=== PATIENT | female | born 1970 | race Caucasian/White ===

== ENCOUNTER 2019-11-06 13:45 | IRF | payer OTHER, SELFPAY ==
--- NOTE | 2019-11-06 14:07 | ADMGEN ---
This patient, Usha De Souza Asa, was admitted to [facility] Room 222-02. Patient/family oriented to hospital policies and general routines including ID bracelet, bed and alarms, visiting hours, pain management, procedures, bathroom and other care routines, personal items, smoking policy, room service/diet, and visiting hours. Valuables list has been completed. Information on how to activate the Rapid Response Team has been discussed. Patient/Family are encouraged to report perceived risks to care and to ask questions if they do not understand what they are told or what they should do.
[2019-11-06 15:30] VITALS: BP 146/58; PULSE 106; RESP 20; TEMP 36.7; O2SAT 100; BMI 40.7
[2019-11-06 17:08] LABS: Glucose Point of Care 152 (65-105)
[2019-11-06] MEDS: INSULIN ASPART (*BKC) 100 UNITS/ML SUB-Q ×2 (18:59→21:17)
[2019-11-06] MEDS: busPIRone HCL 5 MG TABLET 15 MG PO (19:01)
[2019-11-06 19:02] VITALS: PULSE 106
[2019-11-06] MEDS: carvediloL 6.25 MG TABLET PO (19:02)
[2019-11-06] MEDS: GABAPENTIN 300 MG CAPSULE 600 MG PO (19:02)
[2019-11-06] MEDS: FUROSEMIDE 20 MG TABLET PO (19:02)
[2019-11-06] MEDS: VENLAFAXINE HCL 25 MG TABLET PO (19:03)
[2019-11-06] MEDS: VENLAFAXINE HCL 75 MG TABLET PO (19:03)
[2019-11-06] MEDS: MONTELUKAST SODIUM 10 MG TABLET PO (21:08)
[2019-11-06] MEDS: TRAZODONE HCL 50 MG TABLET 100 MG PO (21:08)
[2019-11-06] MEDS: ATORVASTATIN 20 MG TABLET PO (21:08)
[2019-11-06] MEDS: INSULIN GLARGINE (*BKC) 100 UNITS/ML 15 UNITS SUB-Q (21:20)
[2019-11-06 21:23] VITALS: BP 144/50; PULSE 104; RESP 16; TEMP 37.1; O2SAT 97
[2019-11-06 22:04] LABS: Glucose Point of Care 296 (65-105)
[2019-11-07 05:23] LABS: Blood Urea Nitrogen 6 mg/dL (7-17); Carbon Dioxide 31 mmol/L (22-30); Chloride 103 mmol/L (98-107); Estimated CRCL calculation 93 ml/min; Estimated Glomerular Filt Rate > 60; Glucose 147 mg/dL (65-105); Potassium 3.8 mmol/L (3.4-5.0); Sodium 139 mmol/L (137-145)
[2019-11-07 05:26] LABS: Basophils Percent Auto 0.3 % (0.2-1.2); Eosinophils Absolute Auto 0.2 K/mm3 (0-0.3); Eosinophils Percent Auto 3.7 % (0-4.4); Hematocrit 32.4 % (37.0-47.0); Hemoglobin 10.4 g/dL (12.0-15.0); Immature Granulocyte Absolute 0.02 K/mm3 (0.00-0.031); Immature Granulocyte Percent A 0.3 % (0-0.5); Lymphocytes Percent Auto 31.2 % (18.3-44.2); Mean Corpuscular HGB Conc 32.1 g/dl (32-36); Mean Corpuscular Hemoglobin 29.9 pg (26-34); Mean Corpuscular Volume 93.1 fl (80-100); Mean Platelet Volume 9.8 fl (7.4-10.4); Monocytes Absolute Auto 0.5 K/mm3 (0.1-0.6); Monocytes Percent Auto 7.6 % (2.6-8.5); Neutrophils Absolute Auto 3.7 K/mm3 (1.3-6.7); Neutrophils Percent Auto 56.9 % (45.5-73.1); Platelet Count Result 342 k/mm3 (150-375); Red Blood Count 3.48 M/mm3 (4.2-5.4); Red Cell Distribution Width 13.2 % (11.5-14.5); White Blood Count 6.4 K/mm3 (4.5-10.0)
[2019-11-07 06:00] VITALS: BP 145/66; PULSE 98; RESP 20; TEMP 36.2; O2SAT 98
[2019-11-07] MEDS: INSULIN ASPART (*BKC) 100 UNITS/ML SUB-Q ×2 (06:59→12:01)
[2019-11-07 07:05] LABS: Glucose Point of Care 158 (65-105)
[2019-11-07 09:44] VITALS: BMI 40.7
[2019-11-07] MEDS: INSULIN GLARGINE (*BKC) 100 UNITS/ML 10 UNITS SUB-Q (09:52)
[2019-11-07] MEDS: busPIRone HCL 5 MG TABLET 15 MG PO ×3 (09:53→18:13)
[2019-11-07] MEDS: ASPIRIN 81 MG CHEWABLE TABLET PO (09:53)
[2019-11-07 09:54] VITALS: PULSE 98
[2019-11-07] MEDS: FUROSEMIDE 20 MG TABLET PO ×2 (09:54→18:17)
[2019-11-07] MEDS: GABAPENTIN 300 MG CAPSULE 600 MG PO ×3 (09:54→18:17)
[2019-11-07] MEDS: carvediloL 6.25 MG TABLET PO ×2 (09:54→18:13)
[2019-11-07] MEDS: CITALOPRAM HYDROBROMIDE 20 MG TABLET PO (09:54)
[2019-11-07] MEDS: PANTOPRAZOLE 40 MG TABLET PO (09:55)
[2019-11-07] MEDS: VENLAFAXINE HCL 25 MG TABLET PO ×2 (09:55→18:16)
[2019-11-07] MEDS: lisinopriL 10 MG TABLET PO (09:55)
[2019-11-07] MEDS: VENLAFAXINE HCL 75 MG TABLET PO ×2 (09:55→18:16)
--- NOTE | 2019-11-07 10:00 | WPDREHABHP ---
H&P: HPI History of Present Illness Chief complaint: left ankle fracture Narrative: Usha De Souza Asa is a 49 year old female HISTORY OF PRESENT ILLNESS: The patient's primary rehab impairment category is 0 [id number] The etiologic diagnosis is tricompartmental Tibiotalar fracture dislocation / status post surgery I saw this patient [id number] on me the 2019 at 10:00 a.m. The patient is a 49-year-old right-handed white woman with a past medical history of autonomic neuropathy, coronary artery disease, myocardial infarction, hypertension, obstructive sleep apnea, seizures (once in 1980 from hypoglycemia close) and asthma who presented to [facility] on October 31, 2019 after a syncopal episode at around noon. It is worth mentioning and most important thing in the past medical history the fact that the patient is a type 1 diabetic with autonomic neuropathy and has had fracture of the right ankle in a similar situation in the past. The patient this time reports she was in the bathroom when she got dizzy and fell. She does not remember falling but she woke up on the floor and cannot rib confirm loss of consciousness. She reported left ankle pain. Imaging demonstrated a tricompartmental tibial/ tele fracture/dislocation. A splint was placed in the emergency department. Orthopedic surgery was consulted and recommended surgical intervention. The patient underwent an open reduction internal fixation of the left ankle fracture on November 02, 2019 with . Postoperatively she has experienced acute postop pain, acute blood-loss anemia, hypocalcemia, acute kidney injury in the setting of the chronic kidney disease, hypertension, and multiple hypoglycemic episodes. Her pain is currently controlled with oral analgesics, she is hemodynamically stable at present and will continue to be monitored for hypocalcemia electrolyte imbalance are being monitor and rib repleted as necessary, acute kidney injury has resolved and she is back to baseline creatinine, hypertension is controlled with home medications and hypoglycemia is being monitored and managed with medications/insulin adjustments. She is nonweightbearing to the left lower extremity with the splint. She will be discharged to rehab on subcutaneous Lovenox which I do not see it. Patient needs a our you criteria and does not have a qualifying 60% diagnosis. Patient will be admitted to a or you due to current COVID-19 crisis present the patient is an appropriate AR you 40% patientWho during this COVID Emergency requires the admission to acute rehab The patient has not traveled outside the [place] or had contact with someone who is ill that has traveled outside the [place] in the past 21 days. The patient has not traveled to an area of the [place] that is experiencing no transmission of the Coronavirus and has not had close personal contact with anyone that his symptoms. The patient does not have a fever. The patient does not have a lower respiratory illness symptoms. Therapy was initiated at the acute care facility and the patient transferred to us from [facility] on November 06, 2019 on FALLS OR SURGERIES: The patient has had major surgeries in the 100 days prior to admission. They had falls in the past year. They had falls with injury in the past year. PAST MEDICAL HISTORY: anxiety, arthritis, asthma, cataracts, 1 seizure in 1980 from hypoglycemia, coronary artery disease, diabetic neuropathy combined with autonomic neuropathy most likely responsible for her syncopal episodes, gastroesophageal reflux disease, hematoma, history of kidney problems, history of pneumonia, hypertension, hypertensive heart disease without heart failure, myocardial infarction migraine headaches murmur retinopathy obstructive sleep apnea and in capital letters type 1 diabetes mellitus since age 10 PAST SURGICAL HISTORY: adenoidectomy, ankle surgery, section, colonoscopy, hysterecto
[2019-11-07 12:11] LABS: Glucose Point of Care 307 (65-105)
[2019-11-07 14:00] VITALS: BP 136/59; PULSE 92; RESP 18; TEMP 35.9; O2SAT 100
[2019-11-07] MEDS: ENOXAPARIN 40 MG/0.4 ML SYRINGE SUB-Q (15:28)
[2019-11-07 16:10] LABS: Add Urine Microscopic? YES; Appearance Urine Clear (Clear); Bilirubin Urine Negative (Negative); Blood Urine Negative (Negative); Color Urine Yellow (Yellow); Glucose Urine UA 1+ mg/dL (Negative); Hyaline Casts Urine 50+ /lpf; Ketones Urine Negative (Negative); Leukocyte Esterase Ur Negative LEU/UL (Negative); Mucus Urine Rare /lpf; Nitrate Urine Negative (Negative); Protein Urine Negative (Negative); RBC Urine 0-2 /hpf (0-2); Specific Grav Ur 1.012 (1.001-1.035); Squamous Epithelial Cell Urine Occasional /hpf (Few); Urobilinogen Urine Negative mg/dL (<2.0); WBC Urine 0-3 /hpf
[2019-11-07 17:15] LABS: Glucose Point of Care 133 (65-105)
[2019-11-07 18:13] VITALS: PULSE 92
[2019-11-07] MEDS: CYCLOBENZAPRINE HCL 5 MG TABLET PO (18:16)
[2019-11-07 21:21] VITALS: BP 149/69; PULSE 97; RESP 16; TEMP 36.6; O2SAT 97
[2019-11-07] MEDS: ATORVASTATIN 20 MG TABLET PO (21:30)
[2019-11-07] MEDS: MONTELUKAST SODIUM 10 MG TABLET PO (21:30)
[2019-11-07] MEDS: DOCUSATE SODIUM 100 MG CAPSULE PO (21:30)
[2019-11-07] MEDS: TRAZODONE HCL 50 MG TABLET 100 MG PO (21:30)
[2019-11-07] MEDS: INSULIN GLARGINE (*BKC) 100 UNITS/ML 15 UNITS SUB-Q (21:35)
[2019-11-07 22:06] LABS: Glucose Point of Care 296 (65-105)
[2019-11-08 06:00] VITALS: BP 153/75; PULSE 90; RESP 18; TEMP 36.6; O2SAT 99
[2019-11-08 07:03] LABS: Glucose Point of Care 223 (65-105)
[2019-11-08] MEDS: ASPIRIN 81 MG CHEWABLE TABLET PO (10:53)
[2019-11-08] MEDS: busPIRone HCL 5 MG TABLET 15 MG PO ×3 (10:53→18:01)
[2019-11-08] MEDS: CITALOPRAM HYDROBROMIDE 20 MG TABLET PO (10:54)
[2019-11-08] MEDS: CYCLOBENZAPRINE HCL 5 MG TABLET PO ×3 (10:55→18:02)
[2019-11-08] MEDS: FUROSEMIDE 20 MG TABLET PO ×2 (10:55→18:03)
[2019-11-08] MEDS: ENOXAPARIN 40 MG/0.4 ML SYRINGE SUB-Q (10:55)
[2019-11-08] MEDS: lisinopriL 10 MG TABLET PO (10:56)
[2019-11-08] MEDS: GABAPENTIN 300 MG CAPSULE 600 MG PO ×3 (10:56→18:03)
[2019-11-08] MEDS: VENLAFAXINE HCL 25 MG TABLET PO ×2 (10:56→18:04)
[2019-11-08] MEDS: PANTOPRAZOLE 40 MG TABLET PO (10:56)
[2019-11-08 10:57] VITALS: PULSE 78
[2019-11-08] MEDS: carvediloL 6.25 MG TABLET PO ×2 (10:57→18:02)
[2019-11-08] MEDS: VENLAFAXINE HCL 75 MG TABLET PO ×2 (10:57→18:05)
[2019-11-08] MEDS: INSULIN GLARGINE (*BKC) 100 UNITS/ML 10 UNITS SUB-Q (11:00)
[2019-11-08] MEDS: INSULIN ASPART (*BKC) 100 UNITS/ML SUB-Q ×2 (11:01→18:06)
[2019-11-08 12:18] LABS: Glucose Point of Care 118 (65-105)
[2019-11-08 14:00] VITALS: BP 133/53; PULSE 93; RESP 20; TEMP 36.7; O2SAT 99
[2019-11-08 17:28] LABS: Glucose Point of Care 232 (65-105)
[2019-11-08 18:02] VITALS: PULSE 88
[2019-11-08] MEDS: ATORVASTATIN 20 MG TABLET PO (21:11)
[2019-11-08] MEDS: MONTELUKAST SODIUM 10 MG TABLET PO (21:12)
[2019-11-08] MEDS: TRAZODONE HCL 50 MG TABLET 100 MG PO (21:12)
[2019-11-08] MEDS: DOCUSATE SODIUM 100 MG CAPSULE PO (21:14)
[2019-11-08] MEDS: INSULIN GLARGINE (*BKC) 100 UNITS/ML 15 UNITS SUB-Q (21:15)
[2019-11-08 21:47] LABS: Glucose Point of Care 221 (65-105)
[2019-11-08 22:00] VITALS: BP 147/61; PULSE 105; RESP 18; TEMP 36.6; O2SAT 97
[2019-11-09 06:00] VITALS: BP 145/63; PULSE 86; RESP 18; TEMP 37.3; O2SAT 99
[2019-11-09 06:39] LABS: Glucose Point of Care 278 (65-105)
[2019-11-09] MEDS: VENLAFAXINE HCL 75 MG TABLET PO ×2 (08:37→19:01)
[2019-11-09] MEDS: FUROSEMIDE 20 MG TABLET PO ×2 (08:37→18:48)
[2019-11-09] MEDS: busPIRone HCL 5 MG TABLET 15 MG PO ×3 (08:38→18:45)
[2019-11-09] MEDS: ENOXAPARIN 40 MG/0.4 ML SYRINGE SUB-Q (08:38)
[2019-11-09] MEDS: VENLAFAXINE HCL 25 MG TABLET PO ×2 (08:39→19:00)
[2019-11-09] MEDS: CYCLOBENZAPRINE HCL 5 MG TABLET PO ×3 (08:39→18:47)
[2019-11-09] MEDS: ASPIRIN 81 MG CHEWABLE TABLET PO (08:40)
[2019-11-09] MEDS: GABAPENTIN 300 MG CAPSULE 600 MG PO ×3 (08:40→18:47)
[2019-11-09] MEDS: lisinopriL 10 MG TABLET PO (08:40)
[2019-11-09] MEDS: PANTOPRAZOLE 40 MG TABLET PO (08:40)
[2019-11-09 08:41] VITALS: PULSE 86
[2019-11-09] MEDS: CITALOPRAM HYDROBROMIDE 20 MG TABLET PO (08:41)
[2019-11-09] MEDS: carvediloL 6.25 MG TABLET PO ×2 (08:41→18:46)
[2019-11-09] MEDS: INSULIN ASPART (*BKC) 100 UNITS/ML SUB-Q ×2 (08:42→18:49)
[2019-11-09] MEDS: INSULIN GLARGINE (*BKC) 100 UNITS/ML 10 UNITS SUB-Q (08:44)
[2019-11-09 09:00] VITALS: PULSE 86; RESP 18
[2019-11-09 12:15] LABS: Glucose Point of Care 76 (65-105)
--- NOTE | 2019-11-09 13:06 | PC.NURSE ---
During therapy at 12:42 patient felt light headed and laid down. Patient states she has a history of this. Vitals were checked - BP 137/70 HR 112. Vitals re-checked in sitting position - BP 115/56. Waited 10 minutes for recheck BP 113/81. Standing 87/57 and returned to seated position. Patient currently in room in chair with legs elevated at 1300.
[2019-11-09 15:10] VITALS: BP 102/49; PULSE 99; RESP 16; TEMP 36.2; O2SAT 98
[2019-11-09 16:52] LABS: Glucose Point of Care 327 (65-105)
--- NOTE | 2019-11-09 18:13 | WPDNEURORHBP ---
Subjective Date/time seen: 11/09/19 18:13 Interval history: this 49-year-old type 1 diabetic woman is admitted after having had tibial and talar fracture which is in splint heart weight-bearing status is nonweightbearing she is doing fairly well without complaints of headache nausea vomiting chest pain shortness of breath fever chills or sore throat Review of Systems Review of Systems: All systems reviewed & are unremarkable except as noted in HPI and below Functional Status Ambulation Ability Ability to Ambulate 10 Feet: Contact Guard Ambulation Assistive Devices: Walker, Wheeled Transfers Ability Ability to Transfer In/Out of Chair: Standby Assistance Exam Const: General: comfortable and no acute distress HENMT: General nose exam: Normal nares present Mouth: Yes moist mucous membranes Eyes: General: appearance normal, both eyes and all related structures Neck: Neck: supple and no JVD Resp: Effort & Inspection: normal respiratory effort Auscultation: clear to auscultation bilaterally Cardio: Rate: regular rate Rhythm: regular rhythm GI: GI Palp: Yes Soft to palpation Auscultation: normal bowel sounds Skin: General skin exam: normal color Neuro: Other: patient's mental status is normal cranial nerve examination is normal she does have evidence of peripheral neuropathy in both upper lower extremities in the [place] handicapped by the fractures as mentioned above and need assistance in all activities of daily Extrem: Other: the right leg is in a splint Psych: Mental Status: mental status grossly normal Objective Data Vital Signs Vital Signs: Vital Signs - 24 hr 11/08/19 22:00 11/09/19 06:00 11/09/19 08:41 Temperature 36.6 C 37.3 C Pulse Rate 105 H 86 86 Respiratory Rate 18 18 Blood Pressure 147/61 H 145/63 H Pulse Oximetry 97 99 11/09/19 09:00 11/09/19 15:10 Temperature 36.2 C L Pulse Rate 86 99 Respiratory Rate 18 16 Blood Pressure 102/49 L Pulse Oximetry 98 Intake/Output Intake/Output: Intake & Output 11/06/19 11/07/19 11/08/19 11/09/19 23:59 23:59 23:59 23:59 Intake Total 240 480 480 240 Balance 240 480 480 240 Meds/Results Medications: Active Medications Generic Name Dose Route Start Last Admin Trade Name Freq PRN Reason Stop Dose Admin Acetaminophen 325 mg 11/06/19 15:04 Tylenol Tablet PO Q6H PRN Pain (Scale Score 1-3) Hydrocodone Bitart/Acetaminophen 1 tab 11/07/19 14:46 11/09/19 03:57 [place] 5-325 Mg PO 1 tab Q6H PRN Administration Breakthrough Pain Albuterol 2 puff 11/06/19 15:04 Proventil Hfa INHALATION QID PRN Shortness Of Breath Aspirin 81 mg 11/07/19 09:00 11/09/19 08:40 Aspirin Chewable PO 81 mg DAILY [facility] Administration Atorvastatin Calcium 20 mg 11/06/19 21:00 11/08/19 21:11 Lipitor PO 20 mg HS [facility] Administration Beclomethasone Dipropionate 1 puff 11/06/19 20:00 11/09/19 08:38 Qvar 80 Mcg INHALATION 1 puff Q12HRT [facility] Administration Buspirone HCl 15 mg 11/06/19 17:00 11/09/19 13:44 Buspar PO 15 mg TID [facility] Administration Carvedilol 6.25 mg 11/06/19 17:00 11/09/19 08:41 Coreg PO 6.25 mg BID [facility] Administration Citalopram Hydrobromide 20 mg 11/07/19 09:00 11/09/19 08:41 Celexa PO 20 mg DAILY [facility] Administration Cyclobenzaprine HCl 5 mg 11/07/19 17:00 11/09/19 13:44 Flexeril PO 5 mg TID [facility] Administration Dextrose 12.5 gm 11/06/19 15:07 Dextrose 50% Syringe IV PUSH PRN PRN Hypoglycemia Protocol Diphenhydramine HCl 25 mg 11/06/19 15:04 Benadryl Cap PO Q6H PRN Allergy Symptoms Diphenoxylate HCl/Atropine 1 tablet 11/06/19 15:04 Lomotil Tab 2.5 Mg PO QID PRN Diarrhea Docusate Sodium 100 mg 11/06/19 21:00 11/08/19 21:14 Colace Capsule PO 100 mg HS [facility] Administration Enoxaparin Sodium 40 mg 11/07/19 13:00 11/09/19 08:38 Lovenox SUB-Q 40 mg DAILY [facility]
[2019-11-09 18:46] VITALS: PULSE 96
[2019-11-09] MEDS: DOCUSATE SODIUM 100 MG CAPSULE PO (20:18)
[2019-11-09] MEDS: MONTELUKAST SODIUM 10 MG TABLET PO (20:18)
[2019-11-09] MEDS: ATORVASTATIN 20 MG TABLET PO (20:18)
[2019-11-09] MEDS: TRAZODONE HCL 50 MG TABLET 100 MG PO (20:18)
[2019-11-09] MEDS: INSULIN GLARGINE (*BKC) 100 UNITS/ML 15 UNITS SUB-Q (20:25)
[2019-11-09 21:03] LABS: Glucose Point of Care 379 (65-105)
[2019-11-09 22:00] VITALS: BP 175/58; PULSE 98; RESP 18; TEMP 36.7; O2SAT 99
[2019-11-10 06:00] VITALS: BP 164/58; PULSE 89; RESP 18; TEMP 36.9; O2SAT 98
[2019-11-10 06:26] LABS: Glucose Point of Care 310 (65-105)
[2019-11-10] MEDS: INSULIN ASPART (*BKC) 100 UNITS/ML SUB-Q ×2 (08:30→17:48)
[2019-11-10] MEDS: busPIRone HCL 5 MG TABLET 15 MG PO ×3 (08:35→17:49)
[2019-11-10] MEDS: ASPIRIN 81 MG CHEWABLE TABLET PO (08:35)
[2019-11-10 08:36] VITALS: PULSE 89
[2019-11-10] MEDS: CYCLOBENZAPRINE HCL 5 MG TABLET PO ×3 (08:36→17:51)
[2019-11-10] MEDS: CITALOPRAM HYDROBROMIDE 20 MG TABLET PO (08:36)
[2019-11-10] MEDS: carvediloL 6.25 MG TABLET PO ×2 (08:36→17:50)
[2019-11-10] MEDS: ENOXAPARIN 40 MG/0.4 ML SYRINGE SUB-Q (08:37)
[2019-11-10] MEDS: FUROSEMIDE 20 MG TABLET PO ×2 (08:38→17:51)
[2019-11-10] MEDS: lisinopriL 10 MG TABLET PO (08:38)
[2019-11-10] MEDS: VENLAFAXINE HCL 75 MG TABLET PO ×2 (08:38→17:52)
[2019-11-10] MEDS: INSULIN GLARGINE (*BKC) 100 UNITS/ML 10 UNITS SUB-Q (08:38)
[2019-11-10] MEDS: GABAPENTIN 300 MG CAPSULE 600 MG PO ×3 (08:38→17:51)
[2019-11-10] MEDS: PANTOPRAZOLE 40 MG TABLET PO (08:39)
[2019-11-10] MEDS: VENLAFAXINE HCL 25 MG TABLET PO ×2 (08:39→17:52)
[2019-11-10 12:30] VITALS: BMI 40.7
[2019-11-10 12:46] LABS: Glucose Point of Care 81 (65-105)
[2019-11-10 14:00] VITALS: BP 130/57; PULSE 82; RESP 20; TEMP 36.1; O2SAT 99
--- NOTE | 2019-11-10 15:00 | RPD ---
INDIVIDUALIZED PLAN OF CARE FOR Usha De Souza Beto Brief Synthesis of Pre-Admission Screen, Post-Admission Evaluation and Therapy Evaluations: Reviewed on 11/07/2019 13:30. Entered 11/10/2019. The patient presents to rehab with tricompartmental tibiotalar fracture/dislocation. Comorbidities include status post open reduction internal fixation, syncope, coronary artery disease, hypertension, obstructive sleep apnea, seizures, asthma, autonomic neuropathy, hypocalcemia, acute postoperative pain, acute blood loss anemia, arthritis, gastroesophageal reflux disease, acute kidney injury in the setting of chronic kidney disease, insulin-dependent diabetes mellitus with hypoglycemia, depression, anxiety.The patient requires physician services for medical oversight, management of postop complications in setting of present comorbidities, and pain management. The patient requires nursing services for DVT prophylactics, infection protection, medication management and education, pressure relief, and wound care. Deficits include:ADLs, Balance, Endurance, Family Training/Education, Mobility, Pain Management, ROM, Safety, Strength, Transfers Driver Medic/Case Management for: Discharge Planning and Patient/Family Counseling Physical Therapy: 5 days per week for 90 minutes. Treatments may include: Therapeutic Exercise, Gait Training, Neuromuscular Re-education, Transfer Training, Community Reintegration, Bed Mobility, Patient/Family Education, Wheelchair Mobility Group Therapy/Concurrent Therapy Rationales: -Improve attention span during functional activities in a distracted environment. -Enhance problem solving and/or adequate judgment skills during functional activities in a distracted environment. -Promote increased safety awareness in a distracted environment to reduce fall risk with functional tasks, transfers, and ambulation to allow a more safe, self-sufficient return to the home environment. -Improve dynamic balance skills to promote safety and independence with functional activities in a distracted environment for maximum gain. Occupational Therapy: 5 days per week for 90 minutes. Treatments may include: Therapeutic Exercise, Therapeutic Activity, Cognitive Training, Self-Care Transfer Training, Community Reintegration, Home Management, Patient/Family Education, Wheelchair Mobility Training, Energy Conservation Training Group Therapy/Concurrent Therapy Rationales: -Allow therapist to observe and teach generalization and carry-over of skills learned in individual therapy. -Enhance problem solving and sequencing skills during therapeutic activities in a distracted environment. -Promote increased safety awareness in a realistic setting to reduce fall risk with functional tasks due to visual and verbal distractions. -Increase functional level with ADLs, ADL transfers and use of adaptive equipment through therapeutic activities with others while promoting safety to allow a more safe, self-sufficient return home. Medical Prognosis: Good Anticipated Length of Stay: 12 days Rehab Goals: Eating Goal: 06-Independent Oral Hygiene Goal: 06-Independent Toileting Hygiene Goal: 06-Independent Shower/Bathe Self Goal: 06-Independent Upper Body Dressing Goal: 05-Setup or Clean Up Assistance Lower Body Dressing Goal: 06-Independent Putting On/Taking Off Footwear Goal: 06-Independent Rolling Left and Right Goal: 06-Independent Sit to Lying Goal: 06-Independent Lying to Sitting on Side of Bed Goal: 06-Independent Sit to Stand Goal: 06-Independent Chair/[id number]-ew-[id number] Transfer Goal: 06-Independent Toilet Transfer Goal: 06-Independent Car Transfer Goal: 06-Independent Walk 10' Goal: 06-Independent Walk 50' with Two Turns Goal: 06-Independent Walk 150' Goal: 06-Independent Walk 10' on Uneven Surface Goal: 06-Independent 1 Step (Curb) Goal: 03-Partial/Moderate Assistance 4 Steps Goal: 03-Partial/Moderate Assistance 12 Steps Goal Score: 02-Substantial/Maximal Assistance Picking Up Objec
[2019-11-10 17:29] LABS: Glucose Point of Care 284 (65-105)
[2019-11-10] MEDS: INSULIN ASPART (*BKC) 100 UNITS/ML 6 UNITS SUB-Q (17:49)
[2019-11-10 17:50] VITALS: PULSE 82
[2019-11-10] MEDS: ATORVASTATIN 20 MG TABLET PO (20:45)
[2019-11-10] MEDS: TRAZODONE HCL 50 MG TABLET 100 MG PO (20:45)
[2019-11-10] MEDS: MONTELUKAST SODIUM 10 MG TABLET PO (20:45)
[2019-11-10] MEDS: DOCUSATE SODIUM 100 MG CAPSULE PO (20:45)
[2019-11-10] MEDS: INSULIN GLARGINE (*BKC) 100 UNITS/ML 25 UNITS SUB-Q (21:13)
[2019-11-10 21:28] LABS: Glucose Point of Care 157 (65-105)
[2019-11-10 22:00] VITALS: BP 128/69; PULSE 116; RESP 20; TEMP 36.4; O2SAT 95
[2019-11-11] VITALS (9 sets, daily range): BP systolic 100–170; BP diastolic 48–68; PULSE 68–121; RESP 16–20; TEMP 35.9–36.1; O2SAT 96–100
[2019-11-11 06:20] LABS: Glucose Point of Care 279 (65-105)
[2019-11-11] MEDS: INSULIN ASPART (*BKC) 100 UNITS/ML 6 UNITS SUB-Q ×3 (08:02→18:16)
[2019-11-11] MEDS: INSULIN ASPART (*BKC) 100 UNITS/ML SUB-Q ×2 (08:02→18:17)
[2019-11-11] MEDS: ASPIRIN 81 MG CHEWABLE TABLET PO (08:08)
[2019-11-11] MEDS: busPIRone HCL 5 MG TABLET 15 MG PO ×3 (08:08→18:12)
[2019-11-11] MEDS: CITALOPRAM HYDROBROMIDE 20 MG TABLET PO (08:10)
[2019-11-11] MEDS: carvediloL 6.25 MG TABLET PO ×2 (08:10→18:14)
[2019-11-11] MEDS: CYCLOBENZAPRINE HCL 5 MG TABLET PO ×3 (08:11→18:15)
[2019-11-11] MEDS: FUROSEMIDE 20 MG TABLET PO ×2 (08:11→18:15)
[2019-11-11] MEDS: GABAPENTIN 300 MG CAPSULE 600 MG PO ×3 (08:11→18:15)
[2019-11-11] MEDS: ENOXAPARIN 40 MG/0.4 ML SYRINGE SUB-Q (08:11)
[2019-11-11] MEDS: INSULIN GLARGINE (*BKC) 100 UNITS/ML 15 UNITS SUB-Q (08:13)
[2019-11-11] MEDS: lisinopriL 10 MG TABLET PO (08:14)
[2019-11-11] MEDS: PANTOPRAZOLE 40 MG TABLET PO (08:14)
[2019-11-11] MEDS: VENLAFAXINE HCL 75 MG TABLET PO ×2 (08:14→18:18)
[2019-11-11] MEDS: VENLAFAXINE HCL 25 MG TABLET PO ×2 (08:14→18:18)
[2019-11-11 12:40] LABS: Glucose Point of Care 135 (65-105)
--- NOTE | 2019-11-11 13:10 | WPDNEURORHBP ---
Subjective Date/time seen: 11/11/19 13:10 Interval history: this 49-year-old diabetic is here after having had left fracture for which she had the surgery performed she is nonweightbearing of the left leg has been complaining of some dizziness lightheadedness which is related to peripheral neuropathy and probably orthostasis I have os the nurses to go ahead and check the blood pressure several times a day supine and standing otherwise she denies any headache nausea vomiting chest pain shortness of breath fever chills or sore throat Review of Systems Review of Systems: All systems reviewed & are unremarkable except as noted in HPI and below Functional Status Ambulation Ability Ability to Ambulate 10 Feet: Standby Assistance Ambulation Assistive Devices: Walker, Wheeled Transfers Ability Ability to Transfer In/Out of Chair: Standby Assistance Exam Const: General: comfortable and no acute distress HENMT: General nose exam: Normal nares present Mouth: Yes moist mucous membranes Eyes: General: appearance normal, both eyes and all related structures Neck: Neck: supple and no JVD Resp: Effort & Inspection: normal respiratory effort Auscultation: clear to auscultation bilaterally Cardio: Rate: regular rate Rhythm: regular rhythm GI: GI Palp: Yes Soft to palpation Auscultation: normal bowel sounds Skin: General skin exam: normal color and no rashes or lesions noted Neuro: Other: patient is awake and alert will oriented time place and person speech language functions are normal cranial examination is normal she does have evidence of peripheral neuropathy the left leg is in splint knows clinical sign of infections are noted. Extrem: Other: Left leg is in a splint Psych: Mental Status: mental status grossly normal Objective Data Vital Signs Vital Signs: Vital Signs - 24 hr 11/10/19 14:00 11/10/19 17:50 11/10/19 22:00 Temperature 36.1 C L 36.4 C Pulse Rate 82 82 116 H Respiratory Rate 20 20 Blood Pressure 130/57 L 128/69 Pulse Oximetry 99 95 11/11/19 06:00 11/11/19 08:10 Temperature 36.1 C L Pulse Rate 90 90 Respiratory Rate 20 Blood Pressure 170/62 H Pulse Oximetry 98 Intake/Output Intake/Output: Intake & Output 11/08/19 11/09/19 11/10/19 11/11/19 23:59 23:59 23:59 23:59 Intake Total 480 480 480 240 Balance 480 480 480 240 Meds/Results Medications: Active Medications Generic Name Dose Route Start Last Admin Trade Name Freq PRN Reason Stop Dose Admin Acetaminophen 325 mg 11/06/19 15:04 Tylenol Tablet PO Q6H PRN Pain (Scale Score 1-3) Hydrocodone Bitart/Acetaminophen 1 tab 11/07/19 14:46 11/09/19 03:57 [place] 5-325 Mg PO 1 tab Q6H PRN Administration Breakthrough Pain Albuterol 2 puff 11/06/19 15:04 Proventil Hfa INHALATION QID PRN Shortness Of Breath Aspirin 81 mg 11/07/19 09:00 11/11/19 08:08 Aspirin Chewable PO 81 mg DAILY [facility] Administration Atorvastatin Calcium 20 mg 11/06/19 21:00 11/10/19 20:45 Lipitor PO 20 mg HS [facility] Administration Beclomethasone Dipropionate 1 puff 11/06/19 20:00 11/11/19 09:47 Qvar 80 Mcg INHALATION 1 puff Q12HRT [facility] Administration Buspirone HCl 15 mg 11/06/19 17:00 11/11/19 12:40 Buspar PO 15 mg TID [facility] Administration Carvedilol 6.25 mg 11/06/19 17:00 11/11/19 08:10 Coreg PO 6.25 mg BID [facility] Administration Citalopram Hydrobromide 20 mg 11/07/19 09:00 11/11/19 08:10 Celexa PO 20 mg DAILY [facility] Administration Cyclobenzaprine HCl 5 mg 11/07/19 17:00 11/11/19 12:40 Flexeril PO 5 mg TID [facility] Administration Dextrose 12.5 gm 11/06/19 15:07 Dextrose 50% Syringe IV PUSH PRN PRN Hypoglycemia Protocol Diphenhydramine HCl 25 mg 11/06/19 15:04 Benadryl Cap PO Q6H PRN Allergy Symptoms Diphenoxylate HCl/Atropine 1 tablet 11/06/19 15:04 Lomotil Tab 2.5 Mg PO QID PRN Diarrhea Do
--- NOTE | 2019-11-11 15:21 | PCPTNOTE ---
Ct Bethea PTA completed an inpatient rehab wheelchair evaluation on Usha De Souza Asa on 11/11/2019. The patient is unable to safely and independently ambulate household distances due to their current impairments. Their diagnosis is left ankle fracture and their impairments include decreased strength, decreased endurance, decreased range of motion, decreased balance, lower extremity weakness, and ataxia. Usha's weight bearing status is non weight-bearing Left lower leg. The patient demonstrates significant functional mobility limitations that impair their ability to participate in mobility-related activities of daily living (MRADLs), including toileting, feeding, dressing, grooming, and bathing in the customary locations in the home. These limitations cannot be sufficiently resolved by the use of an appropriately fitted cane or walker. It is recommended that the patient utilize a wheelchair for functional mobility within the home in order to facilitate optimal safety, independence and participation in all MRADL's and adequately access their home environment on a regular basis. The patient's home provides adequate access between rooms, maneuvering space, and surfaces to accommodate the recommended wheelchair. The use of a wheelchair for functional mobility is strongly recommended and the patient is receptive to using the wheelchair. The use of this wheelchair will significantly improve the patient's ability to participate in MRADLS and the patient will use it on a regular basis in the home. This will facilitate optimal safety, independence, and participation. The patient has demonstrated sufficient physical and mental capabilities needed to safely propel a manual wheelchair that is provided in the home during a typical day. Recommended Wheelchair Frame: STANDARD Recommended Wheelchair Size: 20 W X 18 H Recommended Wheelchair Cushion: Wheelchair Leg Recommendations: Bilateral elevating detachable leg rest -Elevating legrests are recommended because the patient has a musculoskeletal condition or the presence of a cast or brace. Elevating legrests are recommended because the patient has significant edema of the lower extremities that requires an elevating legrest. -Anti-tippers are recommended due to patient demonstrating increased risk for falls. They would benefit from anti-tippers with added safety and stabilization. Ct Bethea PTA 11/11/2019 Evaluating Therapist Date I agree with and certify that the above recommendation is medically necessary. Referring Physician Date I agree with and certify that the above recommendation is medically necessary. Referring Physician Date
[2019-11-11 18:12] LABS: Glucose Point of Care 248 (65-105)
[2019-11-11] MEDS: MONTELUKAST SODIUM 10 MG TABLET PO (21:01)
[2019-11-11] MEDS: ATORVASTATIN 20 MG TABLET PO (21:04)
[2019-11-11] MEDS: TRAZODONE HCL 50 MG TABLET 100 MG PO (21:04)
[2019-11-11] MEDS: INSULIN GLARGINE (*BKC) 100 UNITS/ML 25 UNITS SUB-Q (21:06)
[2019-11-11] MEDS: DOCUSATE SODIUM 100 MG CAPSULE PO (21:06)
[2019-11-11 21:28] LABS: Glucose Point of Care 297 (65-105)
[2019-11-12] VITALS (8 sets, daily range): BP systolic 117–151; BP diastolic 46–68; PULSE 85–111; RESP 18–20; TEMP 35.9–36.5; O2SAT 98–100
[2019-11-12 06:49] LABS: Glucose Point of Care 354 (65-105)
[2019-11-12] MEDS: INSULIN ASPART (*BKC) 100 UNITS/ML SUB-Q ×2 (09:58→13:05)
[2019-11-12] MEDS: INSULIN ASPART (*BKC) 100 UNITS/ML 6 UNITS SUB-Q ×2 (09:58→13:05)
[2019-11-12] MEDS: INSULIN GLARGINE (*BKC) 100 UNITS/ML 15 UNITS SUB-Q (10:02)
[2019-11-12] MEDS: busPIRone HCL 5 MG TABLET 15 MG PO ×3 (10:04→20:50)
[2019-11-12] MEDS: ASPIRIN 81 MG CHEWABLE TABLET PO (10:05)
[2019-11-12] MEDS: CITALOPRAM HYDROBROMIDE 20 MG TABLET PO (10:05)
[2019-11-12] MEDS: FUROSEMIDE 20 MG TABLET PO ×2 (10:06→17:55)
[2019-11-12] MEDS: GABAPENTIN 300 MG CAPSULE 600 MG PO ×3 (10:06→17:56)
[2019-11-12] MEDS: ENOXAPARIN 40 MG/0.4 ML SYRINGE SUB-Q (10:06)
[2019-11-12] MEDS: CYCLOBENZAPRINE HCL 5 MG TABLET PO ×3 (10:06→20:50)
[2019-11-12] MEDS: lisinopriL 10 MG TABLET PO (10:07)
[2019-11-12] MEDS: VENLAFAXINE HCL 75 MG TABLET PO ×2 (10:08→17:58)
[2019-11-12] MEDS: PANTOPRAZOLE 40 MG TABLET PO (10:09)
[2019-11-12] MEDS: VENLAFAXINE HCL 25 MG TABLET PO ×2 (10:09→17:57)
[2019-11-12] MEDS: carvediloL 6.25 MG TABLET PO ×2 (10:11→17:56)
[2019-11-12 12:13] LABS: Glucose Point of Care 301 (65-105)
--- NOTE | 2019-11-12 13:34 | WPDNEURORHBP ---
Subjective Date/time seen: 11/12/19 13:34 Interval history: this 49-year-old the type 1 diabetic with peripheral neuropathy and orthostatic hypotension is here after having had a left ankle fracture she is stable denies any headache nausea vomiting chest pain shortness of breath fever chills or sore throat no syncopal episodes either Review of Systems Review of Systems: All systems reviewed & are unremarkable except as noted in HPI and below Functional Status Ambulation Ability Ability to Ambulate 10 Feet: Standby Assistance Ability to Ambulate 50 Feet With 2 Turns: Standby Assistance Ambulation Assistive Devices: Walker, Wheeled Transfers Ability Ability to Transfer In/Out of Chair: Standby Assistance Exam Const: General: comfortable and no acute distress HENMT: General nose exam: Normal nares present Mouth: Yes moist mucous membranes Eyes: General: appearance normal, both eyes and all related structures Neck: Neck: supple and no JVD Resp: Effort & Inspection: normal respiratory effort Auscultation: clear to auscultation bilaterally Cardio: Rate: regular rate Rhythm: regular rhythm GI: GI Palp: Yes Soft to palpation Auscultation: normal bowel sounds Skin: General skin exam: normal color and no rashes or lesions noted Neuro: Other: patient is awake and alert with normal speech and language function normal cranial examination is strength is improving all over she does have evidence of peripheral neuropathy with the ortho status I have counseled her about moving around and she does not have any new specific Extrem: General: normal to inspection Other: the left leg is in dressing and splint Psych: Mental Status: mental status grossly normal Objective Data Vital Signs Vital Signs: Vital Signs - 24 hr 11/11/19 14:00 11/11/19 18:14 11/11/19 20:00 Temperature 36.0 C L Pulse Rate 121 H 121 H Respiratory Rate 17 Blood Pressure 100/55 L 135/53 L Pulse Oximetry 100 11/11/19 21:00 11/11/19 21:13 11/11/19 21:14 Temperature 35.9 C L Pulse Rate 102 H Respiratory Rate 16 Blood Pressure 117/68 135/53 L 142/61 H Pulse Oximetry 96 11/12/19 02:38 11/12/19 02:41 11/12/19 06:00 Temperature 36.1 C L Pulse Rate 85 Respiratory Rate 20 Blood Pressure 142/61 H 117/68 151/66 H Pulse Oximetry 98 11/12/19 10:11 Temperature Pulse Rate 85 Respiratory Rate Blood Pressure Pulse Oximetry Intake/Output Intake/Output: Intake & Output 11/09/19 11/10/19 11/11/19 11/12/19 23:59 23:59 23:59 23:59 Intake Total 480 480 960 480 Balance 480 480 960 480 Meds/Results Medications: Active Medications Generic Name Dose Route Start Last Admin Trade Name Freq PRN Reason Stop Dose Admin Acetaminophen 325 mg 11/06/19 15:04 Tylenol Tablet PO Q6H PRN Pain (Scale Score 1-3) Hydrocodone Bitart/Acetaminophen 1 tab 11/07/19 14:46 11/11/19 18:11 [place] 5-325 Mg PO 1 tab Q6H PRN Administration Breakthrough Pain Albuterol 2 puff 11/06/19 15:04 Proventil Hfa INHALATION QID PRN Shortness Of Breath Aspirin 81 mg 11/07/19 09:00 11/12/19 10:05 Aspirin Chewable PO 81 mg DAILY [facility] Administration Atorvastatin Calcium 20 mg 11/06/19 21:00 11/11/19 21:04 Lipitor PO 20 mg HS [facility] Administration Beclomethasone Dipropionate 1 puff 11/06/19 20:00 11/12/19 09:51 Qvar 80 Mcg INHALATION 1 puff Q12HRT [facility] Administration Buspirone HCl 15 mg 11/06/19 17:00 11/12/19 10:04 Buspar PO 15 mg TID [facility] Administration Carvedilol 6.25 mg 11/06/19 17:00 11/12/19 10:11 Coreg PO 6.25 mg BID [facility] Administration Citalopram Hydrobromide 20 mg 11/07/19 09:00 11/12/19 10:05 Celexa PO 20 mg DAILY [facility] Administration Cyclobenzaprine HCl 5 mg 11/07/19 17:00 11/12/19 10:06 Flexeril PO 5 mg TID [facility] Administration Dextrose 12.5 gm 11/06/19 15:07 Dextrose 50% Syringe IV PUSH PRN PRN
[2019-11-12 17:12] LABS: Glucose Point of Care 47 (65-105)
[2019-11-12 19:24] LABS: Glucose Point of Care 165 (65-105)
[2019-11-12] MEDS: TRAZODONE HCL 50 MG TABLET 100 MG PO (21:15)
[2019-11-12] MEDS: MONTELUKAST SODIUM 10 MG TABLET PO (21:20)
[2019-11-12] MEDS: DOCUSATE SODIUM 100 MG CAPSULE PO (21:21)
[2019-11-12] MEDS: INSULIN GLARGINE (*BKC) 100 UNITS/ML 25 UNITS SUB-Q (21:23)
[2019-11-12] MEDS: ATORVASTATIN 20 MG TABLET PO (21:23)
[2019-11-12 23:59] LABS: Glucose Point of Care 339 (65-105)
[2019-11-13 06:00] VITALS: BP 150/75; PULSE 89; RESP 20; TEMP 36.4; O2SAT 100
[2019-11-13 06:51] LABS: Glucose Point of Care 275 (65-105)
[2019-11-13] MEDS: INSULIN ASPART (*BKC) 100 UNITS/ML 6 UNITS SUB-Q ×3 (10:02→17:49)
[2019-11-13] MEDS: INSULIN ASPART (*BKC) 100 UNITS/ML SUB-Q ×3 (10:02→21:48)
[2019-11-13] MEDS: INSULIN GLARGINE (*BKC) 100 UNITS/ML 15 UNITS SUB-Q (10:05)
[2019-11-13] MEDS: ENOXAPARIN 40 MG/0.4 ML SYRINGE SUB-Q (10:06)
[2019-11-13 10:08] VITALS: PULSE 89
[2019-11-13] MEDS: carvediloL 6.25 MG TABLET PO ×2 (10:08→17:49)
[2019-11-13] MEDS: CYCLOBENZAPRINE HCL 5 MG TABLET PO ×3 (10:08→17:50)
[2019-11-13] MEDS: busPIRone HCL 5 MG TABLET 15 MG PO ×3 (10:08→17:49)
[2019-11-13] MEDS: ASPIRIN 81 MG CHEWABLE TABLET PO (10:08)
[2019-11-13] MEDS: CITALOPRAM HYDROBROMIDE 20 MG TABLET PO (10:10)
[2019-11-13] MEDS: lisinopriL 10 MG TABLET PO (10:11)
[2019-11-13] MEDS: FUROSEMIDE 20 MG TABLET PO ×2 (10:11→17:50)
[2019-11-13] MEDS: GABAPENTIN 300 MG CAPSULE 600 MG PO ×3 (10:11→17:50)
[2019-11-13] MEDS: PANTOPRAZOLE 40 MG TABLET PO (10:11)
[2019-11-13] MEDS: VENLAFAXINE HCL 75 MG TABLET PO ×2 (10:11→17:51)
[2019-11-13] MEDS: VENLAFAXINE HCL 25 MG TABLET PO ×2 (10:12→17:51)
--- NOTE | 2019-11-13 12:52 | WPDNEURORHBP ---
Subjective Date/time seen: 11/13/19 12:52 Interval history: this 49-year-old type 1 diabetic woman is here after having surgery for left ankle fractures she does have orthostasis which fluctuates I have suggested to her that she should be following her with the primary care physician so that he can look into it further and put her on on midodrine otherwise she is doing fairly well without any headache nausea vomiting chest pain or shortness of breath Review of Systems Review of Systems: All systems reviewed & are unremarkable except as noted in HPI and below Functional Status Ambulation Ability Ability to Ambulate 10 Feet: Independent Ability to Ambulate 50 Feet With 2 Turns: Independent Ambulation Assistive Devices: Walker, Wheeled Transfers Ability Ability to Transfer In/Out of Chair: Standby Assistance Exam Const: General: comfortable and no acute distress HENMT: General nose exam: Normal nares present Mouth: Yes moist mucous membranes Eyes: General: appearance normal, both eyes and all related structures Neck: Neck: supple and no JVD Resp: Effort & Inspection: normal respiratory effort Auscultation: clear to auscultation bilaterally Cardio: Rate: regular rate Rhythm: regular rhythm GI: GI Palp: Yes Soft to palpation Auscultation: normal bowel sounds Skin: General skin exam: normal color and no rashes or lesions noted Neuro: Other: patient's mental status normal cranial exam shows normal motor examination is limited because of the left ankle fracture nonweightbearing status she does have evidence of peripheral neuropathy which is most likely responsible for her syncopal episodes in the past which have been evaluated in the past and she has knows about it Extrem: Other: left leg is in a splint Psych: Mental Status: mental status grossly normal Objective Data Vital Signs Vital Signs: Vital Signs - 24 hr 11/13/19 14:00 11/13/19 17:49 11/13/19 20:00 Temperature 36.4 C L Pulse Rate 99 99 Respiratory Rate 18 Blood Pressure 97/63 L 154/76 H Pulse Oximetry 100 11/13/19 22:00 11/14/19 06:00 11/14/19 08:00 Temperature 36.7 C 36.0 C L Pulse Rate 96 84 84 Respiratory Rate 18 18 18 Blood Pressure 124/49 L 139/60 Pulse Oximetry 97 99 99 Intake/Output Intake/Output: Intake & Output 11/11/19 11/12/19 11/13/19 11/14/19 23:59 23:59 23:59 23:59 Intake Total 721 312 3110 360 Balance 236 399 1073 360 Meds/Results Medications: Active Medications Generic Name Dose Route Start Last Admin Trade Name Freq PRN Reason Stop Dose Admin Acetaminophen 325 mg 11/06/19 15:04 Tylenol Tablet PO Q6H PRN Pain (Scale Score 1-3) Hydrocodone Bitart/Acetaminophen 1 tab 11/07/19 14:46 11/13/19 19:52 [place] 5-325 Mg PO 1 tab Q6H PRN Administration Breakthrough Pain Albuterol 2 puff 11/06/19 15:04 Proventil Hfa INHALATION QID PRN Shortness Of Breath Aspirin 81 mg 11/07/19 09:00 11/14/19 10:52 Aspirin Chewable PO 81 mg DAILY SRINATH Administration Atorvastatin Calcium 20 mg 11/06/19 21:00 11/13/19 21:43 Lipitor PO 20 mg HS SRINATH Administration Beclomethasone Dipropionate 1 puff 11/06/19 20:00 11/14/19 08:47 Qvar 80 Mcg INHALATION 1 puff Q12HRT SRINATH Administration Buspirone HCl 15 mg 11/06/19 17:00 11/14/19 09:20 Buspar PO 15 mg TID SRINATH Administration Carvedilol 6.25 mg 11/06/19 17:00 11/14/19 09:21 Coreg PO 6.25 mg BID SRINATH Administration Citalopram Hydrobromide 20 mg 11/07/19 09:00 11/14/19 09:21 Celexa PO 20 mg DAILY SRINATH Administration Cyclobenzaprine HCl 5 mg 11/07/19 17:00 11/14/19 09:19 Flexeril PO 5 mg TID SRINATH Administration Dextrose 12.5 gm 11/06/19 15:07 Dextrose 50% Syringe IV PUSH PRN PRN Hypoglycemia Protocol Diphenhydramine HCl 25 mg 11/06/19 15:04 Benadryl Cap PO Q6H PRN Allergy Symptoms Diphenoxylate HCl/Atropine 1 tablet
[2019-11-13 13:42] LABS: Glucose Point of Care 223 (65-105)
[2019-11-13 14:00] VITALS: BP 122/61; BP 97/63; PULSE 99; RESP 18; TEMP 36.4; O2SAT 100
[2019-11-13 17:00] LABS: Glucose Point of Care 77 (65-105)
[2019-11-13 17:49] VITALS: PULSE 99
[2019-11-13 20:00] VITALS: BP 154/76
[2019-11-13] MEDS: TRAZODONE HCL 50 MG TABLET 100 MG PO (21:41)
[2019-11-13] MEDS: MONTELUKAST SODIUM 10 MG TABLET PO (21:41)
[2019-11-13] MEDS: DOCUSATE SODIUM 100 MG CAPSULE PO (21:43)
[2019-11-13] MEDS: ATORVASTATIN 20 MG TABLET PO (21:43)
[2019-11-13] MEDS: INSULIN GLARGINE (*BKC) 100 UNITS/ML 35 UNITS SUB-Q (21:45)
[2019-11-13 21:56] LABS: Glucose Point of Care 245 (65-105)
[2019-11-13 22:00] VITALS: BP 124/49; PULSE 96; RESP 18; TEMP 36.7; O2SAT 97
[2019-11-14] VITALS (8 sets, daily range): BP systolic 123–139; BP diastolic 52–85; PULSE 84–110; RESP 18–20; TEMP 36–36.6; O2SAT 98–100
[2019-11-14 04:34] LABS: Basophils Percent Auto 0.7 % (0.2-1.2); Eosinophils Absolute Auto 0.4 K/mm3 (0-0.3); Eosinophils Percent Auto 6.5 % (0-4.4); Hematocrit 30.8 % (37.0-47.0); Hemoglobin 9.9 g/dL (12.0-15.0); Immature Granulocyte Absolute 0.05 K/mm3 (0.00-0.031); Immature Granulocyte Percent A 0.8 % (0-0.5); Lymphocytes Absolute Auto 2.48 K/mm3 (0.9-3.2); Lymphocytes Percent Auto 41.5 % (18.3-44.2); Mean Corpuscular HGB Conc 32.1 g/dl (32-36); Mean Corpuscular Hemoglobin 29.5 pg (26-34); Mean Corpuscular Volume 91.7 fl (80-100); Mean Platelet Volume 9.2 fl (7.4-10.4); Monocytes Absolute Auto 0.5 K/mm3 (0.1-0.6); Neutrophils Absolute Auto 2.5 K/mm3 (1.3-6.7); Neutrophils Percent Auto 41.5 % (45.5-73.1); Platelet Count Result 347 k/mm3 (150-375); Red Blood Count 3.36 M/mm3 (4.2-5.4); Red Cell Distribution Width 13.4 % (11.5-14.5)
[2019-11-14 04:48] LABS: Blood Urea Nitrogen 16 mg/dL (7-17); Calcium 8.6 mg/dL (8.4-10.2); Carbon Dioxide 31 mmol/L (22-30); Chloride 102 mmol/L (98-107); Estimated CRCL calculation 82 ml/min; Estimated Glomerular Filt Rate > 60; Glucose 263 mg/dL (65-105); Sodium 135 mmol/L (137-145)
[2019-11-14 07:04] LABS: Glucose Point of Care 283 (65-105)
[2019-11-14] MEDS: INSULIN ASPART (*BKC) 100 UNITS/ML 6 UNITS SUB-Q ×3 (09:14→17:50)
[2019-11-14] MEDS: INSULIN ASPART (*BKC) 100 UNITS/ML SUB-Q ×2 (09:15→13:01)
[2019-11-14] MEDS: CYCLOBENZAPRINE HCL 5 MG TABLET PO ×3 (09:19→17:44)
[2019-11-14] MEDS: busPIRone HCL 5 MG TABLET 15 MG PO ×3 (09:20→17:44)
[2019-11-14] MEDS: VENLAFAXINE HCL 75 MG TABLET PO ×2 (09:20→17:44)
[2019-11-14] MEDS: carvediloL 6.25 MG TABLET PO ×2 (09:21→17:44)
[2019-11-14] MEDS: PANTOPRAZOLE 40 MG TABLET PO (09:21)
[2019-11-14] MEDS: CITALOPRAM HYDROBROMIDE 20 MG TABLET PO (09:21)
[2019-11-14] MEDS: GABAPENTIN 300 MG CAPSULE 600 MG PO ×3 (09:21→17:44)
[2019-11-14] MEDS: FUROSEMIDE 20 MG TABLET PO ×2 (09:22→17:44)
[2019-11-14] MEDS: VENLAFAXINE HCL 25 MG TABLET PO ×2 (09:22→17:44)
[2019-11-14] MEDS: ENOXAPARIN 40 MG/0.4 ML SYRINGE SUB-Q (09:22)
[2019-11-14] MEDS: lisinopriL 10 MG TABLET PO (09:22)
[2019-11-14] MEDS: INSULIN GLARGINE (*BKC) 100 UNITS/ML 15 UNITS SUB-Q (09:38)
[2019-11-14] MEDS: ASPIRIN 81 MG CHEWABLE TABLET PO (10:52)
[2019-11-14 11:07] LABS: Glucose Point of Care 278 (65-105)
--- NOTE | 2019-11-14 11:20 | PCDIET ---
Nutrition Follow-Up Complete: Nutrition Diagnosis: Obesity related to excessive energy intake prior to admission as evidenced by BMI of 40.7. Nutrition Goal: Patient to consume 75% of meals or greater. Goal met. Patient consuming 75-100% of most meals on diabetic diet which is appropriate. Last recorded weight is 101 kg. Recommend obtaining new weight. Bowel Motility: Last documented BM on 11/12/19. Labs Reviewed: Hgb (9.9), Hct (30.8), Glu (278), Na (135) Meds Noted: Albuterol, Novolog, Colace, Lantus, Lasix, Protonix Additional Notes: No documented pressure ulcers. Will continue to monitor with same goals. Nutrition Monitoring and Evaluation: Follow up in 7 days.
--- NOTE | 2019-11-14 14:42 | WPDNEURORHBP ---
Subjective Date/time seen: 11/14/19 14:42 Interval history: the patient is a 49-year-old type 1 diabetic woman who has had surgery for the left ankle fracture she is nonweightbearing on that extremity and is on DVT prophylaxis her orthostatic hypotension fluctuates and have discussed with her that the etiology for her syncopal episodes and she would benefit from the medications with help of the primary care physician she denies any headache nausea vomiting chest pain shortness of breath and she is going to be discharged tomorrow with home health and follow-up with the surgeon we have not received any call back from the treating surgeon about the follow-up appointment and or the any other suggestions Review of Systems Review of Systems: All systems reviewed & are unremarkable except as noted in HPI and below Functional Status Ambulation Ability Ability to Ambulate 10 Feet: Independent Ability to Ambulate 50 Feet With 2 Turns: Independent Ambulation Assistive Devices: Walker, Wheeled Transfers Ability Ability to Transfer In/Out of Chair: Standby Assistance Exam Const: General: comfortable and no acute distress HENMT: General nose exam: Normal nares present Eyes: General: appearance normal, both eyes and all related structures Neck: Neck: supple and no JVD Resp: Effort & Inspection: normal respiratory effort Auscultation: clear to auscultation bilaterally Cardio: Rate: regular rate Rhythm: regular rhythm GI: GI Palp: Yes Soft to palpation Auscultation: normal bowel sounds Skin: General skin exam: normal color and no rashes or lesions noted Neuro: Other: she is awake and alert oriented times place and person has normal age reason function normal cranial examination has evidence of peripheral neuropathy however has not had any syncopal episodes here nonweightbearing on the left lower extremity otherwise quite stable Extrem: Other: left leg is in the splint Psych: Mental Status: mental status grossly normal Objective Data Vital Signs Vital Signs: Vital Signs - 24 hr 11/13/19 17:49 11/13/19 20:00 11/13/19 22:00 Temperature 36.7 C Pulse Rate 99 96 Respiratory Rate 18 Blood Pressure 154/76 H 124/49 L Pulse Oximetry 97 11/14/19 06:00 11/14/19 08:00 Temperature 36.0 C L Pulse Rate 84 84 Respiratory Rate 18 18 Blood Pressure 139/60 Pulse Oximetry 99 99 Intake/Output Intake/Output: Intake & Output 05/05/11/12/19 11/13/19 11/14/19 23:59 23:59 23:59 23:59 Intake Total 614 662 1255 360 Balance 014 923 8691 360 Meds/Results Medications: Active Medications Generic Name Dose Route Start Last Admin Trade Name Freq PRN Reason Stop Dose Admin Acetaminophen 325 mg 11/06/19 15:04 Tylenol Tablet PO Q6H PRN Pain (Scale Score 1-3) Hydrocodone Bitart/Acetaminophen 1 tab 11/07/19 14:46 11/13/19 19:52 [place] 5-325 Mg PO 1 tab Q6H PRN Administration Breakthrough Pain Albuterol 2 puff 11/06/19 15:04 Proventil Hfa INHALATION QID PRN Shortness Of Breath Aspirin 81 mg 11/07/19 09:00 11/14/19 10:52 Aspirin Chewable PO 81 mg DAILY SRINATH Administration Atorvastatin Calcium 20 mg 11/06/19 21:00 11/13/19 21:43 Lipitor PO 20 mg HS SRINATH Administration Beclomethasone Dipropionate 1 puff 11/06/19 20:00 11/14/19 08:47 Qvar 80 Mcg INHALATION 1 puff Q12HRT SRINATH Administration Buspirone HCl 15 mg 11/06/19 17:00 11/14/19 13:04 Buspar PO 15 mg TID SRINATH Administration Carvedilol 6.25 mg 11/06/19 17:00 11/14/19 09:21 Coreg PO 6.25 mg BID SRINATH Administration Citalopram Hydrobromide 20 mg 11/07/19 09:00 11/14/19 09:21 Celexa PO 20 mg DAILY SRINATH Administration Cyclobenzaprine HCl 5 mg 11/07/19 17:00 11/14/19 13:04 Flexeril PO 5 mg TID SRINATH Administration Dextrose 12.5 gm 11/06/19 15:07 Dextrose 50% Syringe IV PUSH PRN PRN Hypoglycemia Protocol Diphenhydramine HCl
[2019-11-14 15:37] LABS: Glucose Point of Care 45 (65-105)
[2019-11-14 17:42] LABS: Glucose Point of Care 69 (65-105)
[2019-11-14] MEDS: DOCUSATE SODIUM 100 MG CAPSULE PO (21:00)
[2019-11-14] MEDS: MONTELUKAST SODIUM 10 MG TABLET PO (21:00)
[2019-11-14] MEDS: ATORVASTATIN 20 MG TABLET PO (21:01)
[2019-11-14] MEDS: TRAZODONE HCL 50 MG TABLET 100 MG PO (21:02)
[2019-11-14] MEDS: INSULIN GLARGINE (*BKC) 100 UNITS/ML 35 UNITS SUB-Q (21:07)
[2019-11-14 21:39] LABS: Glucose Point of Care 63 (65-105)
[2019-11-14 21:44] LABS: Glucose Point of Care 92 (65-105)
[2019-11-15 06:00] VITALS: BP 146/67; PULSE 91; RESP 18; TEMP 36.1; O2SAT 99
[2019-11-15 06:51] LABS: Glucose Point of Care 108 (65-105)
[2019-11-15 08:00] VITALS: BP 117/59; BP 143/55
[2019-11-15] MEDS: INSULIN ASPART (*BKC) 100 UNITS/ML 6 UNITS SUB-Q ×2 (08:52→12:15)
[2019-11-15 08:57] VITALS: PULSE 91
[2019-11-15] MEDS: carvediloL 6.25 MG TABLET PO (08:57)
[2019-11-15] MEDS: busPIRone HCL 5 MG TABLET 15 MG PO ×2 (08:57→12:18)
[2019-11-15] MEDS: ASPIRIN 81 MG CHEWABLE TABLET PO (08:57)
[2019-11-15] MEDS: FUROSEMIDE 20 MG TABLET PO (08:58)
[2019-11-15] MEDS: CYCLOBENZAPRINE HCL 5 MG TABLET PO ×2 (08:58→12:18)
[2019-11-15] MEDS: ENOXAPARIN 40 MG/0.4 ML SYRINGE SUB-Q (08:58)
[2019-11-15] MEDS: CITALOPRAM HYDROBROMIDE 20 MG TABLET PO (08:58)
[2019-11-15] MEDS: GABAPENTIN 300 MG CAPSULE 600 MG PO ×2 (08:59→12:18)
[2019-11-15] MEDS: PANTOPRAZOLE 40 MG TABLET PO (08:59)
[2019-11-15] MEDS: lisinopriL 10 MG TABLET PO (08:59)
[2019-11-15] MEDS: VENLAFAXINE HCL 75 MG TABLET PO (08:59)
[2019-11-15] MEDS: VENLAFAXINE HCL 25 MG TABLET PO (08:59)
[2019-11-15] MEDS: INSULIN GLARGINE (*BKC) 100 UNITS/ML 15 UNITS SUB-Q (09:01)
[2019-11-15 11:57] LABS: Glucose Point of Care 259 (65-105)
--- NOTE | 2019-11-15 12:02 | WPDNEURORHBP ---
Subjective Date/time seen: left ankle fracture with non weight bearing status and [id number]/20 12:02 Review of Systems Review of Systems: All systems reviewed & are unremarkable except as noted in HPI and below Functional Status Ambulation Ability Ability to Ambulate 10 Feet: Independent Ability to Ambulate 50 Feet With 2 Turns: Independent Ambulation Assistive Devices: Walker, Wheeled Transfers Ability Ability to Transfer In/Out of Chair: Standby Assistance Exam Const: General: cooperative, comfortable and no acute distress Orientation/consciousness: patient oriented x3 Eyes: General: appearance normal, both eyes and all related structures Neck: Neck: full ROM Resp: Effort & Inspection: normal respiratory effort Auscultation: clear to auscultation bilaterally Cardio: Rate: regular rate Rhythm: regular rhythm GI: Auscultation: normal bowel sounds Skin: General skin exam: no rashes or lesions noted Neuro: General: patient oriented x3 and moves all extremities Cranial nerves: Yes CN's II-XII intact bilaterally Cognition (Neuro): normal cognition Speech: normal speech Motor exam (neuro): 5/5 motor strength present throughout (except lle splinted) Coordination: [id number] test normal Psych: Appearance: grossly normal Objective Data Vital Signs Vital Signs: Vital Signs - 24 hr 11/14/19 14:00 11/14/19 16:22 11/14/19 16:25 Temperature 36.6 C 36.3 C L 36.3 C L Pulse Rate 110 H 88 102 H Respiratory Rate 20 18 18 Blood Pressure 123/69 135/53 L 125/54 L Pulse Oximetry 98 100 100 11/14/19 20:00 11/14/19 20:05 11/14/19 22:00 Temperature 36.4 C Pulse Rate 90 110 H 90 Respiratory Rate 18 Blood Pressure 138/52 L 127/85 138/52 L Pulse Oximetry 98 11/15/19 06:00 11/15/19 08:00 11/15/19 08:57 Temperature 36.1 C L Pulse Rate 91 91 Respiratory Rate 18 Blood Pressure 146/67 H 117/59 L Pulse Oximetry 99 Intake/Output Intake/Output: Intake & Output 11/12/19 11/13/19 11/14/19 11/15/19 23:59 23:59 23:59 23:59 Intake Total 720 1080 960 300 Balance 720 1080 960 300 Meds/Results Medications: Active Medications Generic Name Dose Route Start Last Admin Trade Name Freq PRN Reason Stop Dose Admin Acetaminophen 325 mg 11/06/19 15:04 Tylenol Tablet PO Q6H PRN Pain (Scale Score 1-3) Hydrocodone Bitart/Acetaminophen 1 tab 11/07/19 14:46 11/13/19 19:52 [place] 5-325 Mg PO 1 tab Q6H PRN Administration Breakthrough Pain Albuterol 2 puff 11/06/19 15:04 Proventil Hfa INHALATION QID PRN Shortness Of Breath Aspirin 81 mg 11/07/19 09:00 11/15/19 08:57 Aspirin Chewable PO 81 mg DAILY SRINATH Administration Atorvastatin Calcium 20 mg 11/06/19 21:00 11/14/19 21:01 Lipitor PO 20 mg HS SRINATH Administration Beclomethasone Dipropionate 1 puff 11/06/19 20:00 11/15/19 08:02 Qvar 80 Mcg INHALATION 1 puff Q12HRT SRINATH Administration Buspirone HCl 15 mg 11/06/19 17:00 11/15/19 08:57 Buspar PO 15 mg TID SRINATH Administration Carvedilol 6.25 mg 11/06/19 17:00 11/15/19 08:57 Coreg PO 6.25 mg BID SRINATH Administration Citalopram Hydrobromide 20 mg 11/07/19 09:00 11/15/19 08:58 Celexa PO 20 mg DAILY SRINATH Administration Cyclobenzaprine HCl 5 mg 11/07/19 17:00 11/15/19 08:58 Flexeril PO 5 mg TID SRINATH Administration Dextrose 12.5 gm 11/06/19 15:07 Dextrose 50% Syringe IV PUSH PRN PRN Hypoglycemia Protocol Diphenhydramine HCl 25 mg 11/06/19 15:04 Benadryl Cap PO Q6H PRN Allergy Symptoms Diphenoxylate HCl/Atropine 1 tablet 11/06/19 15:04 Lomotil Tab 2.5 Mg PO QID PRN Diarrhea Docusate Sodium 100 mg 11/06/19 21:00 11/14/19 21:00 Colace Capsule PO 100 mg HS SRINATH Administration Enoxaparin Sodium 40 mg 11/07/19 13:00 11/15/19 08:58 Lovenox SUB-Q 40 mg DAILY SRINATH Administration Furosemide 20 mg
[2019-11-15] MEDS: INSULIN ASPART (*BKC) 100 UNITS/ML SUB-Q (12:16)
--- NOTE | 2019-11-19 14:33 | PM.DS ---
DS: Diagnosis Admitting Diagnosis Admitting Diagnosis: Other fracture of shaft of left tibia, initial encounter for closed fracture Discharge Diagnosis (1) Orthostatic hypotension: Code(s): I95.1 - Orthostatic hypotension Status: Acute (2) Hypoglycemia: Code(s): E16.2 - Hypoglycemia, unspecified Status: Acute (3) Hypocalcemia: Code(s): E83.51 - Hypocalcemia Status: Acute (4) Coronary artery disease: Code(s): I25.10 - Atherosclerotic heart disease of [place] coronary artery without angina pectoris Status: Acute (5) Diabetic peripheral neuropathy: Code(s): E11.42 - Type 2 diabetes mellitus with diabetic polyneuropathy Status: Acute (6) Diabetic autonomic neuropathy: Code(s): E11.43 - Type 2 diabetes mellitus with diabetic autonomic (poly)neuropathy Status: Acute (7) Type 1 diabetes mellitus: Code(s): E10.9 - Type 1 diabetes mellitus without complications Status: Acute (8) S/P ORIF (open reduction internal fixation) fracture: Code(s): Z98.890 - Other specified postprocedural states; Z87.81 - Personal history of (healed) traumatic fracture Status: Acute (9) [place] fracture: Code(s): S92.109A - Unspecified fracture of unspecified talus, initial encounter for closed fracture Status: Acute (10) Tibial fracture: Code(s): S82.209A - Unspecified fracture of shaft of unspecified tibia, initial encounter for closed fracture Status: Acute DS: Summary Hospital Course Reason for hospitalization: the patient was admitted because of the above diagnosis did remarkably well except that she has had hypotension which needs to be addressed as a follow-up with the primary care physician because of her autonomic neuropathy and diabetic peripheral neuropathy also Hospital Course: during the course of hospitalization she received the medical management of underlying diabetes and other medical issues and she was able to achieve the following independent measures eating independent, oral hygiene independent, toileting independent, bathing independent, upper body dressing independent, lower body dressing independent, foot where independent, rolling in bed independent, sitting to lying independent, lying to sitting independent, sit to stand independent, chair transfers independent, 12 transfers independent, car transfers independent, walking 10 feet independent, walking 50 feet with to returns independent walking 150 feet patient was unable to, walking 10 feet uneven surfaces independent [place] steps independent, 4 steps patient was unable to 12 steps patient is unable to begin about checked independent wheelchair 50 feet independent, wheelchair and 50 feet independent. Patient was sent home with home health with follow-up instructions given Time Spent with Patient Time attestation: Total time spent providing and/or coordinating discharge services: Exam Const: General: comfortable and no acute distress HENMT: General nose exam: Normal nares present Mouth: Yes dry mucous membranes Eyes: General: appearance normal, both eyes and all related structures Neck: Neck: supple and no JVD Resp: Effort & Inspection: normal respiratory effort Auscultation: clear to auscultation bilaterally Cardio: Rate: regular rate Rhythm: regular rhythm GI: GI Palp: Yes Soft to palpation Auscultation: normal bowel sounds Skin: General skin exam: normal color and no rashes or lesions noted Neuro: Other: patient remained awake and alert lucid with normal mental status examination normal cranial examination however evidence of peripheral neuropathy and autonomic dysfunction which remained stable Extrem: Other: the extremity which had Karen fracture and tibial fracture is in the splint Psych: Mental Status: mental status grossly normal Discharge Plan Discharge Attending physician on discharge: Mo Egan Discharging Clinician: Mo Egan
== END 2019-11-15 13:00 | disposition home health service (06) | DRG 561 ==
PROVIDERS: Admitting Provider Psychiatry & Neurology Neurology; Visit Provider Psychiatry & Neurology Neurology
DX: S82.292D Other fracture of shaft of left tibia, subsequent encounter for closed fracture with routine healing (principal); S92.102D Unspecified fracture of left talus, subsequent encounter for fracture with routine healing; D63.1 Anemia in chronic kidney disease; E10.42 Type 1 diabetes mellitus with diabetic polyneuropathy; E10.319 Type 1 diabetes mellitus with unspecified diabetic retinopathy without macular edema; E10.22 Type 1 diabetes mellitus with diabetic chronic kidney disease; E10.649 Type 1 diabetes mellitus with hypoglycemia without coma; E10.43 Type 1 diabetes mellitus with diabetic autonomic (poly)neuropathy; G47.33 Obstructive sleep apnea (adult) (pediatric); I25.10 Atherosclerotic heart disease of native coronary artery without angina pectoris; I95.1 Orthostatic hypotension; I25.2 Old myocardial infarction; I12.9 Hypertensive chronic kidney disease with stage 1 through stage 4 chronic kidney disease, or unspecified chronic kidney disease; J45.909 Unspecified asthma, uncomplicated; K21.9 Gastro-esophageal reflux disease without esophagitis; N18.9 Chronic kidney disease, unspecified; Z79.4 Long term (current) use of insulin
CPT/HCPCS: 36415; 80048; 81001; 85025; 94640; 97110; 97116; 97161; 97166; 97530; 97535; A9270; J1650; J1815